=== PATIENT | male | born 1975 | race Caucasian/White ===

== ENCOUNTER 2021-02-03 09:08 | Emergency (ER) | payer OTHER, MEDICAID, SELFPAY ==
[2021-02-03 09:19] VITALS: BP 159/86; PULSE 115; RESP 18; TEMP 36.8; O2SAT 99; BMI 24.1
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
[2021-02-03] MEDS: ONDANSETRON 4 MG ODT PO (09:53)
[2021-02-03] MEDS: IBUPROFEN 400 MG TABLET 800 MG PO (09:53)
[2021-02-03 10:27] VITALS: BP 143/83; PULSE 98; RESP 17; O2SAT 99
--- NOTE | 2021-02-03 10:27 | PC.NURSE ---
Nausea improved after zofran. Tolerating po fluids.
== END 2021-02-03 10:34 | disposition home or self-care (01) ==
PROVIDERS: Emergency Provider Emergency Medicine
DX: M54.2 Cervicalgia (principal); G43.909 Migraine, unspecified, not intractable, without status migrainosus; W22.8XXA Striking against or struck by other objects, initial encounter
CPT/HCPCS: 72040; 99283